=== PATIENT | male | born 1955 | race Caucasian/White ===

== ENCOUNTER 2018-07-15 17:49 | Emergency (ER) | payer MEDICARE ==
[2018-07-15] MEDS ORDERED: Ondansetron 4 MG/2 ML SDV IVPUSH ONE (18:02)
[2018-07-15] MEDS ORDERED: LORazepam 2 MG/ML SDV IVPUSH ONE ×2 (18:03→18:43)
--- NOTE | 2018-07-15 18:04 | EDM.PDOC ---
<Rabia Kenny - Last Filed: 07/15/18 18:05> ED HPI GENERAL MEDICAL PROBLEM - General Chief Complaint: Chest Pain Stated Complaint: MEDICAL Time Seen by Provider: 07/15/18 18:05 Source of Information: Reports: Patient History Limitations: Reports: No Limitations - History of Present Illness INITIAL COMMENTS - FREE TEXT/NARRATIVE: pt arrived feeling that his very nervous in his chest. He is nauseated and he has been vomiting he is having some pain when he takes a deep breath, This is not severe. He states this all started about 3 am. Since that time he is very nauseated. He has not had a fever. Onset: Other ( started at 3 am. ) Duration: Hour(s): Location: Reports: Chest, Abdomen, Other ( he has been very nauseated. ) - Related Data Allergies Allergy/AdvReac Type Severity Reaction Status Date / Time No Known Allergies Allergy Verified 07/15/18 17:59 ED ROS GENERAL - Review of Systems Review Of Systems: See Below Constitutional: Reports: Other (pt is having a nervous sensation in his cheat and he is very nauseated. ) HEENT: Reports: No Symptoms Respiratory: Reports: Shortness of Breath Cardiovascular: Reports: No Symptoms, Palpitations, Other (pt feels like hjis heart is punding raspidly) Endocrine: Reports: No Symptoms GI/Abdominal: Reports: Nausea, Other (pt does not have abdomanal pain. He has more pain when he takes a deep breath. ) : Reports: No Symptoms Musculoskeletal: Reports: No Symptoms Skin: Reports: No Symptoms ED EXAM, GENERAL - Physical Exam Exam: See Below Free Text/Narrative:: pt appears very anxious. He is very nauseasted. His bp was greater than 200 systolic on arrival. He states he has vomited several times prior to arrival. He does not have a history of cardiac problems. He is a known diabetic. Exam Limited By: No Limitations General Appearance: Alert, Anxious, Moderate Distress, Other ( very anxious appearing. ) Ears: Normal TMs Nose: Normal Inspection Throat/Mouth: Normal Inspection Head: Atraumatic Neck: Normal Inspection Respiratory/Chest: No Respiratory Distress, Other ( some pain when he takes a deep breath. 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 He had poor circulation that brought about the ambutation. ) Neurological: Alert, Oriented, Normal Cognition Psychiatric: Anxious Skin Exam: Warm, Dry Lymphatic: Other Course - Vital Signs Last Recorded V/S: Last Vital Signs Temp 35.8 C 07/15/18 21:34 Pulse 74 07/15/18 21:34 Resp 18 07/15/18 21:34 BP 174/91 H 07/15/18 21:34 Pulse Ox 93 L 07/15/18 21:34 - Orders/Labs/Meds Orders: Active Orders 24 hr Category Date Time Status EKG Documentation Completion [RC] ASDIRECTED Care 07/15/18 17:53 Active EKG Documentation Completion [RC] ASDIRECTED Care 07/15/18 19:50 Active Sodium Chloride 0.9% [Normal Saline] 1,000 ml Med 07/15/18 18:15 Active IV ASDIRECTED EKG 12 Lead [EK] Routine Ther 07/15/18 17:53 Ordered EKG 12 Lead [EK] Urgent Ther 07/15/18 19:50 Ordered Medication Orders Sodium Chloride (Normal Saline) 1,000 mls @ 200 mls/hr IV ASDIRECTED DEE DEE Last Admin: 07/15/18 18:16 Dose: 200 mls/hr Labs: Laboratory Tests 07/15/18 07/15/18 07/15/18 Range/Units 18:06 18:06 18:06 WBC 12.1 H (4.5-11.0) K/uL RBC 5.83 (4.30-5.90) M/uL Hgb 16.2 H (12.0-15.0) g/dL Hct 48.5 (40.0-54.0) % MCV 83 (80-98) fL MCH 28 (27-31) pg MCHC 33 (32-36) % Plt Count 287 (150-400) K/uL Neut % (Auto) 82 H (36-66) % Lymph % (Auto) 12 L (24-44) % [place] % (Auto) 6 (2-6) % Eos % (Auto) 1 L (2-4) % Baso % (Auto) 0 (0-1) % Puncture Site ABG pH (7.350-7.450) ABG pCO2 (35.0-42.0) mmHg ABG pO2 (75.0-100.0) mmHg ABG HCO3 (22.0-26.0) mmol/L ABG Total CO2 (23.0-27.0) mmol/L ABG O2 Saturation (95.0-98.0) % ABG O2 Content (15.0-23.0) %vol ABG Base Excess mm/L ABG Hemoglobin (13.5-18.0) g/dL ABG Oxyhemoglobin % ABG Carboxyhemoglobin (0.0-1.6) % ABG Methemoglobin % David Test O2 Delivery Device Sodium 137 L (140-148) mmol/L Potassium 4.2 (3.6-5.2) mmol/L Chloride 102 (100-108) mmol/L Carbon Dioxide 24 (21-32) mmol/L Anion Gap 15.2 H (5.0-14.0) mmol/L BUN 18 (7-18) mg/dL Creatinine 1.2 (0.8-1.3) mg/dL Est Cr Clr Drug Dosing 64.21 mL/min Estimated GFR (MDRD) > 60 (>60) Glucose 214 H (74-106) mg/dL Calcium 9.3 (8.5-10.1) mg/dL Total Bilirubin 0.4 (0.2-1.0) mg/dL AST 13 L (15-37) U/L ALT 25 (12-78) U/L Alkaline Phosphatase 105 (46-116) U/L Troponin I < 0.017 (0.000-0.056) ng/mL Total Protein 7.9 (6.4-8.2) g/dL Albumin 3.9 (3.4-5.0) g/dL Globulin 4.0 H (2.3-3.5) g/dL Albumin/Globulin Ratio 1.0 L (1.2-2.2) 07/15/18 07/15/18 Range/Units 18:19 21:02 WBC (4.5-11.0) K/uL RBC (4.30-5.90) M/uL Hgb (12.0-15.0) g/dL Hct (40.0-54.0) % MCV (80-98) fL MCH (27-31) pg MCHC (32-36) % Plt Count (150-400) K/uL Neut % (Auto) (36-66) % Lymph % (Auto) (24-44) % [place] % (Auto) (2-6) % Eos % (Auto) (2-4) % Baso % (Auto) (0-1) % Puncture Site Lt radial ABG pH 7.388 (7.350-7.450) ABG pCO2 40.8 (35.0-42.0) mmHg ABG pO2 59.7 L (75.0-100.0) mmHg ABG HCO3 24.0 (22.0-26.0) mmol/L ABG Total CO2 20.9 L (23.0-27.0) mmol/L ABG O2 Saturation 91.1 L (95.0-98.0) % ABG O2 Content 18.0 (15.0-23.0) %vol ABG Base Excess -0.4 mm/L ABG Hemoglobin 15.1 (13.5-18.0) g/dL ABG Oxyhemoglobin 85.0 % ABG Carboxyhemoglobin 6.0 H (0.0-1.6) % ABG Methemoglobin 0.7 % David Test Pass O2 Delivery Device Room air Sodium (140-148) mmol/L Potassium (3.6-5.2) mmol/L Chloride (100-108) mmol/L Carbon Dioxide (21-32) mmol/L Anion Gap (5.0-14.0) mmol/L BUN (7-18) mg/dL Creatinine (0.8-1.3) mg/dL Est Cr Clr Drug Dosing mL/min Estimated GFR (MDRD) (>60) Glucose (74-106) mg/dL Calcium (8.5-10.1) mg/dL Total Bilirubin (0.2-1.0) mg/dL AST (15-37) U/L ALT (12-78) U/L Alkaline Phosphatase (46-116) U/L Troponin I < 0.017 (0.000-0.056) ng/mL Total Protein (6.4-8.2) g/dL Albumin (3.4-5.0) g/dL Globulin (2.3-3.5) g/dL Albumin/Globulin Ratio (1.2-2.2) Meds: Medications Generic Name Dose Route Start Last Admin Trade Name Karey PRN Reason Stop Dose Admin Sodium Chloride 1,000 mls @ 200 mls/hr 07/15/18 18:15 07/15/18 18:16 Normal Saline IV 200 mls/hr ASDIRECTED DEE DEE Administration Discontinued Medications Generic Name Dose Route Start Last Admin Trade Name Karey PRN Reason Stop Dose Admin Al Hydroxide/Mg Hydroxide 15 0 ml 07/15/18 18:29 07/15/18 18:36 ml/ Lidocaine HCl 15 ml PO 07/15/18 18:30 15 ml ONETIME ONE Administration Lorazepam 0.5 mg 07/15/18 18:03 07/15/18 18:16 Ativan IVPUSH 07/15/18 18:04 0.5 mg ONETIME ONE Administration Lorazepam 0.5 mg 07/15/18 18:43 07/15/18 18:55 Ativan IVPUSH 07/15/18 18:44 0.5 mg ONETIME ONE Administration Ondansetron HCl 4 mg 07/15/18 18:02 07/15/18 18:19 Zofran IVPUSH 07/15/18 18:03 4 mg ONETIME ONE Administration Departure - Departure Disposition: Home, Self-Care 01 Clinical Impression: Chest pain, Constipation Forms: ED Department Discharge Additional Instructions: Drink several glasses of water tonight to go along with the mag citrate. Probably you will have some good bowel movements tomorrow morning. You may have some cramping tonight. If you haven't had bowel movements in 24 hours you could try repeating one bottle of magnesium citrate although you may wind up having some diarrhea. In the future try eating a big bowl of bran cereal every day along with fruits and vegetables and so forth. The laxative Alyce lax is frequently used chronically in people with frequent constipation - My Orders Last 24 Hours: My Active Orders 07/15/18 19:50 EKG Documentation Completion [RC] ASDIRECTED EKG 12 Lead [EK] Urgent - Assessment/Plan Last 24 Hours: My Active Orders 07/15/18 19:50 EKG Documentation Completion [RC] ASDIRECTED EKG 12 Lead [EK] Urgent <Lincoln Montes - Last Filed: 07/15/18 21:43> Course - Radiology Interpretation Free Text/Narrative:: Chest x-ray showed no acute cardiopulmonary process. Flat and upright abdominal films showed large amount of stool throughout the colon otherwise normal gas pattern. He does have some pretty large intrarenal stones mostly on the right. He has a right femoral intramedullary grace. - Re-Assessments/Exams Free Text/Narrative Re-Assessment/Exam: 07/15/18 21:38 This gentleman initially was seen by Dr. Kenny. He described a foggy feeling in the left side of his chest especially when he inhales her exhaled. He 's had some nausea and felt very anxious area he feels like something is moving around in his upper abdomen. He denied any actual chest pain or abdominal pain. He denies any heart disease or diabetes. Dr. Kenny gave him a GI cocktail and some Ativan that was administered a little bit after she left. Patient was having some hypertension at the time and his blood pressure has come down nicely. He also got very good relief from the GI cocktail. 2 EKGs showed no evidence of any ischemia. First one just shows sinus rhythm at 73 bpm and the second shows sinus rhythm at 77 bpm and possibly a little right ventricular conduction delay but no ischemia. He's had 2 troponin test done 3 hours apart and those are negative. At time of discharge she is feeling much better. He received a bottle of magnesium citrate in the emergency department prior to leaving. He was counseled on drinking extra water tonight possibly repeating the mag citrate if he doesn't have a bowel movement by tomorrow afternoon also counseling on diet and increasing fiber in his diet and possibly even using the Alyce lax Departure - Departure Time of Disposition: 21:42 Condition: Fair
[2018-07-15] MEDS ORDERED: Sodium Chloride 0.9% 1,000 ML IV SCH (18:15)
--- NOTE | 2018-07-15 18:22 | CRLCR ---
Indication: Shortness of breath. Nausea. Technique: A single AP portable view of the chest was obtained. Comparison: None Findings: The heart is normal in size. The lungs are clear. No infiltrate, pleural effusion, or pneumothorax is identified. Impression: No acute cardiopulmonary process. Dictated by Ronda Chen MD @ Jul 15 2018 6:19PM Signed by Dr. Ronda Chen @ Jul 15 2018 6:20PM
[2018-07-15] MEDS ORDERED: Alum Hydrox/Mag Hydrox/Simeth 15 ML, Lidocaine 2% 15 ML PO ONE ×2 (18:29)
--- NOTE | 2018-07-15 19:17 | CRLCR ---
INDICATION: Epigastric pain. COMPARISON: None. FINDINGS/IMPRESSION: Large amount of stool throughout the colon, suggesting constipation. Bowel gas pattern is otherwise within normal limits and no free air is seen. Multiple calcifications are projected over the kidneys bilaterally consistent with intrarenal stones, the largest on the right measuring up to 1.6 centimeters in size. Scattered atherosclerotic vascular calcifications are also present. The proximal portion of a right femoral intramedullary grace is noted. No acute osseous findings are seen. Dictated by Peterson Corona MD @ 07/15/2018 7:15:44 PM Dictated by: Peterson Corona MD @ 07/15/2018 19:16:48 (Electronically Signed)
[2018-07-15] MEDS ORDERED: Magnesium Citrate Solution 296 ML Bottle PO ONE (21:44)
== END 2018-07-15 21:52 | disposition home or self-care (01) ==
LOC: JP.ED 17:49
DX: R07.1 Chest pain on breathing (principal); K59.00 Constipation, unspecified
CPT/HCPCS: 36415; 36600; 71045; 74019; 80053; 82803; 84484; 85025; 93005; 96374; 96375; 96376; 99285; A9270; J2060; J2405; J7030; 99284

== ENCOUNTER 2019-05-23 23:07 | Emergency (ER) | payer MEDICARE ==
--- NOTE | 2019-05-24 00:14 | EDM.PDOC ---
ED HPI GENERAL MEDICAL PROBLEM - General Chief Complaint: Genitourinary Problem Stated Complaint: LOWER ABD PRESSURE Time Seen by Provider: 05/23/19 23:55 Source of Information: Reports: Patient History Limitations: Reports: No Limitations - History of Present Illness INITIAL COMMENTS - FREE TEXT/NARRATIVE: 63-year-old gentleman who presents with left lower abdominal pressure and urinary urgency. Reports symptoms started suddenly this evening after shower. He will go to the bathroom but he feels like he cannot completely empty. He also notices pressure from the left flank radiating around into the groin. No dysuria. No hematuria. No history of renal stones. No fevers. No history of prior pain in the past similar to this. - Related Data Allergies Allergy/AdvReac Type Severity Reaction Status Date / Time No Known Allergies Allergy Verified 05/23/19 23:28 Home Meds: Home Meds Gabapentin [Neurontin] 4 tab PO BEDTIME 07/15/18 [History] Methadone 10 mg PO TID 07/15/18 [History] atorvaSTATin [Lipitor] 10 mg PO BEDTIME 07/15/18 [History] metFORMIN [Glucophage] 500 mg PO BIDMEALS 07/15/18 [History] Past Medical History HEENT History: Reports: Impaired Vision Cardiovascular History: Reports: High Cholesterol Gastrointestinal History: Reports: None Musculoskeletal History: Reports: Other (See Below) Endocrine/Metabolic History: Reports: Diabetes, Type II Hematologic History: Reports: Blood Transfusion(s) - Past Surgical History Head Surgeries/Procedures: Reports: None Cardiovascular Surgical History: Reports: None GI Surgical History: Reports: Hernia, Inguinal Endocrine Surgical History: Reports: None Musculoskeletal Surgical History: Reports: Amputation Other Musculoskeletal Surgeries/Procedures:: right below knee amputation Dermatological Surgical History: Reports: None Social & Family History - Tobacco Use Smoking Status *Q: Current Some Day Smoker Years of Tobacco use: 40 Packs/Tins Daily: 1 - Caffeine Use Caffeine Use: Reports: None - Recreational Drug Use Recreational Drug Use: No ED ROS GENERAL - Review of Systems Review Of Systems: See Below Constitutional: Reports: No Symptoms HEENT: Reports: No Symptoms Respiratory: Reports: No Symptoms Cardiovascular: Reports: No Symptoms Endocrine: Reports: No Symptoms GI/Abdominal: Reports: No Symptoms : Reports: Flank Pain, Urgency Musculoskeletal: Reports: No Symptoms Skin: Reports: No Symptoms Neurological: Reports: No Symptoms Psychiatric: Reports: No Symptoms Hematologic/Lymphatic: Reports: No Symptoms Immunologic: Reports: No Symptoms ED EXAM, RENAL/ - Physical Exam Exam: See Below Exam Limited By: No Limitations General Appearance: Alert, No Apparent Distress Ears: Normal External Exam Nose: Normal Inspection Throat/Mouth: Normal Inspection Head: Atraumatic, Normocephalic Neck: Normal Inspection Respiratory/Chest: Lungs Clear Cardiovascular: Regular Rate, Rhythm GI/Abdominal: Soft, Non-Tender, Other (no flank tenderness) Back Exam: Normal Inspection Extremities: Normal Inspection Neurological: Alert, Oriented Psychiatric: Normal Affect, Normal Mood Skin Exam: Warm, Dry Course - Vital Signs Last Recorded V/S: Last Vital Signs Temp 36.7 C 05/23/19 23:37 Pulse 72 05/23/19 23:37 Resp 16 05/23/19 23:37 BP 170/86 H 05/23/19 23:37 Pulse Ox 95 05/23/19 23:37 - Orders/Labs/Meds Orders: Active Orders 24 hr Category Date Time Status Abdomen Pelvis wo Cont [CT] Stat Exams 05/24/19 00:07 Taken Labs: Laboratory Tests 05/23/19 Range/Units 23:23 Urine Color Yellow (YELLOW) Urine Appearance Slightly cloudy A (CLEAR) Urine pH 6.5 (5.0-8.0) Ur Specific [place] 1.015 (1.008-1.030) Urine Protein Trace H (NEGATIVE) mg/dL Urine Glucose (UA) Negative (NEGATIVE) mg/dL Urine Ketones Negative (NEGATIVE) mg/dL Urine Occult Blood Large H (NEGATIVE) Urine Nitrite Negative (NEGATIVE) Urine Bilirubin Negative (NEGATIVE) Urine Urobilinogen 0.2 (0.2-1.0) EU/dL Ur Leukocyte Esterase Negative (NEGATIVE) Urine RBC >100 H (0-5) Urine WBC 0-5 (0-5) Ur Epithelial Cells Few Amorphous Sediment Not seen Urine Bacteria Few Urine Mucus Not seen - Re-Assessments/Exams Free Text/Narrative Re-Assessment/Exam: 63 yo who presents with concerns of left sided flank pain, urinary urgency. Appears well on exam. Noted to have microscopic hematuria on UA otherwise without evidence of infection. Presentation is consistent with renal stone. Will proceed with CT abd/pelvis 05/24/19 00:13 Free Text/Narrative Re-Assessment/Exam: CT by my read with 4-5 mm stone and UV junction. Still with minimal pain, only "pressure" No evidence of infection on UA Discussed straining urine, following, seeking care if symptoms do not improve over 1-2 days Will f/u with PCP Discharged 05/24/19 00:44 Departure - Departure Time of Disposition: 00:46 Disposition: Home, Self-Care 01 Clinical Impression: Kidney stone on left side - Discharge Information Instructions: Kidney Stones, [id number] Referrals: PCP,None [Primary Care Provider] - Forms: ED Department Discharge Additional Instructions: We found a kidney stone likely causing your symptoms on your scan. Please strain your urine to attempt to catch the stone. Use tylenol or ibuprofen for discomfort. Follow up with your primary care provider. See a physician if your symptoms fail to improve within 1-2 days. Sepsis Event Note - Evaluation Sepsis Screening Result: No Definite Risk - Focused Exam Vital Signs: Vital Signs Temp Pulse Resp BP Pulse Ox 05/23/19 23:37 36.7 C 72 16 170/86 H 95 05/23/19 23:20 36.7 C 72 16 170/86 H 95 Date Exam was Performed: 05/24/19 Time Exam was Performed: 00:46 - My Orders Last 24 Hours: My Active Orders 05/24/19 00:07 Abdomen Pelvis wo Cont [CT] Stat - Assessment/Plan Last 24 Hours: My Active Orders 05/24/19 00:07 Abdomen Pelvis wo Cont [CT] Stat
--- NOTE | 2019-05-24 00:49 | CRLCT ---
INDICATION: Left flank pain and hematuria TECHNIQUE: CT Abdomen and pelvis without i.v. contrast. Coronal and sagittal reformats were obtained. COMPARISON: None FINDINGS: Lower chest: Unremarkable. Liver: There is a 1.2 cm cyst in the dome of the liver. Spleen: Unremarkable. Pancreas: Unremarkable. Gallbladder: Unremarkable. Kidney: There is a 6 mm stone present in the left ureterovesicular junction causing mild left hydroureter and renal pelvic caliectasis. There is a nonobstructing 1.6 cm stone present within the right renal pelvis. Multiple intrarenal stones are present bilaterally measuring up to 1 cm. Adrenal: Unremarkable. Bowel: Mild fluid distension of the stomach is noted. Moderate amount of stool is present throughout the colon which may be due to chronic constipation. There is a gasless density near the ileocecal valve without any apparent obstruction of the terminal ileum. This is most likely due to small bowel contents incompletely mixing with cecal stool. The appendix is normal in appearance and size. Vascular: Moderate diffuse atherosclerotic calcifications of the abdominal aorta and its tributaries are present. Lymph: Unremarkable. Peritoneum: Unremarkable. No pneumoperitoneum is seen. No significant ascites is noted. Pelvis: Evaluation of the pelvic soft tissues and osseous structures are limited by beam hardening artifacts from the right femoral intramedullary grace. Soft tissue: Unremarkable. Bone: Unremarkable. IMPRESSIONS: 1. There is a 6 mm stone present in the left ureterovesicular junction causing mild left hydroureter and renal pelvic caliectasis. 2. There is a nonobstructing 1.6 cm stone present within the right renal pelvis. Dictated by Brayden Hussein MD @ 05/24/2019 12:47:40 AM Please note that all CT scans at this facility use dose modulation, iterative reconstruction, and/or weight-based dosing when appropriate to reduce radiation dose to as low as reasonably achievable. Dictated by: Brayden Hussein MD @ 05/24/2019 00:47:47 (Electronically Signed)
== END 2019-05-24 01:00 | disposition home or self-care (01) ==
LOC: JP.ED 23:07
DX: N20.0 Calculus of kidney (principal); E78.00 Pure hypercholesterolemia, unspecified; E11.9 Type 2 diabetes mellitus without complications; F17.210 Nicotine dependence, cigarettes, uncomplicated; Z79.899 Other long term (current) drug therapy; Z79.84 Long term (current) use of oral hypoglycemic drugs
CPT/HCPCS: 51798; 74176; 81001; 99283; 99284-25

== ENCOUNTER 2022-08-23 23:04 | Emergency (ER) | payer MEDICARE ==
[2022-08-23] MEDS ORDERED: Gabapentin 400 MG Cap PO STA (23:49)
[2022-08-23] MEDS ORDERED: Gabapentin 300 MG Cap PO ONE (23:49)
== END 2022-08-24 00:08 | disposition home or self-care (01) ==
LOC: JP.ED 23:04
DX: Z76.0 Encounter for issue of repeat prescription (principal); Z79.899 Other long term (current) drug therapy; E11.9 Type 2 diabetes mellitus without complications; F17.210 Nicotine dependence, cigarettes, uncomplicated
CPT/HCPCS: 99281; A9270